=== PATIENT | female | born 2000 | race Caucasian/White ===

== ENCOUNTER 2019-08-27 12:33 | Observation (INO) | payer MEDICAID ==
[2019-08-27] VITALS (8 sets, daily range): BP systolic 77–113; BP diastolic 37–75; Ht 160 cm; Wt 100.9 kg
[~2019-08-27] VITALS: Ht 160 cm; Wt 100.9 kg
[2019-08-27] MEDS ORDERED: CATAPRES0.1 MG PO (12:38)
[2019-08-27] MEDS ORDERED: [UNRECOGNIZED DRUG - REMARK] (12:39)
--- NOTE | 2019-08-27 12:48 | NUR ---
SPOKE WITH CRYSTAL AT [place] [facility], RECOMMEND IV FLUIDS AND MONITORING, TREAT SYMPTOMATICALLY AND SUPPORTIVELY, CAN TREAT SYMPTOMATIC BRADYCARDIA WITH ATROPINE AND CALL BACK IF NEEDED.
[2019-08-27 13:05] LABS: BASOPHILS 0.1 % (0-2); EOSINOPHILS 1.2 % (0-7); HEMATOCRIT 41.4 % (36.0-48.0); HEMOGLOBIN 13.4 g/dL (12-16); IMMATURE GRANULOCYTES 0.1 % (0-5); LYMPHOCYTES 28.4 % (15-50); MCH 28.6 pg (26.0-34.0); MCHC 32.4 g/dL (31.0-37.0); MCV 88.5 fL (80.0-100.0); MEAN PLATELET VOLUME 9.4 fL (7.4-10.4); MONOCYTES 6.7 % (2-11); NEUTROPHILS 63.5 % (40-80); PLATELET COUNT 311 10x3/uL (130-400); RBC 4.68 10x6/uL (4.00-5.40); RDW 12.6 % (11.5-14.5); WBC 8.6 10x3/uL (4.8-10.8)
--- NOTE | 2019-08-27 13:10 | NUR ---
According to the suicide assessment the patient scores high for suicide and she will require a 1:1 observation.
[2019-08-27 13:18] LABS: CALC OSMOLALITY 277 mosm/kg (275-300); CALCIUM 8.9 mg/dL (8.5-10.1); CARBON DIOXIDE 26.1 mmol/L (21.0-32.0); CHLORIDE - SERUM 104 mmol/L (98-107); CREATININE - SERUM 0.6 mg/dL (0.6-1.3); GLUCOSE 129 mg/dL (74-106); POTASSIUM - SERUM 4.3 mmol/L (3.5-5.1); SODIUM 139 mmol/L (136-145); UREA NITROGEN 8 mg/dL (7-18); eGFR NON AFRICAN AMERICAN > 90 mL/min (90-120)
[2019-08-27 13:25] LABS: ALBUMIN 3.6 g/dL (3.4-5.0); ALKALINE PHOSPHATASE 69 U/L (30-120); ALT (SGPT) 24 U/L (10-68); BILIRUBIN - TOTAL 0.56 mg/dL (0.2-1.3); MAGNESIUM - SERUM 1.8 mg/dL (1.8-2.4); PROTEIN - SERUM 7.5 g/dL (6.4-8.2)
[2019-08-27 14:34] LABS: HCG URINE NEGATIVE (NEGATIVE)
[2019-08-27 14:43] LABS: UDS - AMPHET NEGATIVE QUAL (NEGATIVE); UDS - BARB NEGATIVE QUAL (NEGATIVE); UDS - BENZO POSITIVE QUAL (NEGATIVE); UDS - COCAINE NEGATIVE QUAL (NEGATIVE); UDS - OPIATE NEGATIVE QUAL (NEGATIVE); UDS - PCP NEGATIVE QUAL (NEGATIVE); UDS - THC NEGATIVE QUAL (NEGATIVE)
[2019-08-27 14:46] LABS: BILIRUBIN NEGATIVE (NEGATIVE); GLUCOSE NEGATIVE (NEGATIVE); KETONE NEGATIVE (NEGATIVE); NITRITE NEGATIVE (NEGATIVE); UROBILINOGEN NORMAL (NORMAL)
[2019-08-27 14:47] LABS: RED CELLS - URINE OCC /hpf (0-5); WHITE CELLS - URINE 0-5 /hpf (NEGATIVE)
[2019-08-27 14:48] LABS: BACTERIA MANY /hpf (NEGATIVE)
--- NOTE | 2019-08-27 15:15 | NUR ---
pateint arrived to unit. no acute distress. will continue to monitor
--- NOTE | 2019-08-27 15:20 | NUR ---
DENIES SUICIDE THOUGHTS AT THIS TIME. STATED SHE DID NOT WANT TO KILL HERSELF BUT WANTED TO SLEEP
--- NOTE | 2019-08-27 15:20 | NUR ---
PATIENT STATED SHE TOOK 4-6 PILLS OF CLONIDINE.
--- NOTE | 2019-08-27 15:21 | NUR ---
DROOM CLEARED. SITTER AT BEDSIDE
[2019-08-28] VITALS (11 sets, daily range): BP systolic 86–113; BP diastolic 33–57
[2019-08-28 05:16] LABS: BASOPHILS 0.1 % (0-2); EOSINOPHILS 1.5 % (0-7); HEMATOCRIT 38.2 % (36.0-48.0); HEMOGLOBIN 12.4 g/dL (12-16); IMMATURE GRANULOCYTES 0.2 % (0-5); LYMPHOCYTES 29.7 % (15-50); MCHC 32.5 g/dL (31.0-37.0); MCV 89.5 fL (80.0-100.0); MEAN PLATELET VOLUME 9.7 fL (7.4-10.4); MONOCYTES 7.2 % (2-11); NEUTROPHILS 61.3 % (40-80); PLATELET COUNT 287 10x3/uL (130-400); RBC 4.27 10x6/uL (4.00-5.40); RDW 12.7 % (11.5-14.5)
[2019-08-28 06:01] LABS: ALBUMIN 3.1 g/dL (3.4-5.0); ALKALINE PHOSPHATASE 55 U/L (30-120); ALT (SGPT) 22 U/L (10-68); BILIRUBIN - TOTAL 0.63 mg/dL (0.2-1.3); CALC OSMOLALITY 276 mosm/kg (275-300); CALCIUM 8.4 mg/dL (8.5-10.1); CARBON DIOXIDE 24.8 mmol/L (21.0-32.0); CHLORIDE - SERUM 104 mmol/L (98-107); CREATININE - SERUM 0.6 mg/dL (0.6-1.3); GLUCOSE 90 mg/dL (74-106); MAGNESIUM - SERUM 1.8 mg/dL (1.8-2.4); POTASSIUM - SERUM 3.9 mmol/L (3.5-5.1); PROTEIN - SERUM 6.5 g/dL (6.4-8.2); SODIUM 139 mmol/L (136-145); UREA NITROGEN 10 mg/dL (7-18); eGFR NON AFRICAN AMERICAN > 90 mL/min (90-120)
--- NOTE | 2019-08-28 06:15 | NUR ---
1900 - REPORT RECEIVED, PT RESTING IN BED, AAOX4. ASSESSMENT COMPLETED, SEE FLOWSHEET. PIV IN RT AC, SEE IV FLOWSHEET. 2100 - PT RESTING QUIETLY IN BED. 2300 - REASSESSMENT COMPLETED, PT ASSISTED TO BEDSIDE COMMODE. 0100 - PT C/O STOMACH PAINS/CRAMPS. 0300 - REASSESSMENT COMPLETED, NO ACUTE DISTRESS AT THIS TIME. 0500 - PT RESTING IN BED, NO ACUTE DISTRESS NOTED.
--- NOTE | 2019-08-28 15:04 | CN ---
PATIENT NAME:GAVIN LOW MEDICAL RECORD: [id number] : 89 LOCATION:[id number] ADMIT DATE: 08/27/19 ACCOUNT: [id number] CONSULTING PHYSICIAN: TANI WILLARD MD REFERRING PHYSICIAN: PATRICIA OSBORNE MD DATE OF CONSULTATION: 08/27/2019 IDENTIFYING DATA: The patient is 18 years old and she is admitted to the hospital on a voluntary basis after having taken a handful of clonidine. She initially said she was trying to kill herself. She now says she was just upset. Either way, she is endorsing numerous neurovegetative depressive symptoms and feels helpless, hopeless, isolated, and withdrawn. She discusses a number of problems that are overwhelming. She denies psychotic symptoms and she denies substance abuse. PAST PSYCHIATRIC HISTORY: Significant for an overdose when she was 13 and she was hospitalized at that time. She has a history of depression, anxiety, and posttraumatic stress disorder. She is currently followed on an outpatient basis by a psychiatrist and states that she has not been going to her therapy appointments as she is supposed to. ASSESSMENT: 1. Major depression. 2. Status post overdose. PLAN: The patient should be maintained on suicide precautions and should be transitioned out of the hospital soon if she is medically stable to an inpatient psychiatric facility. TRANSINT:[id number] Voice Confirmation ID: [id number] DOCUMENT ID: [id number] TANI WILLARD MD at 1504 CC: [id number] DICTATION DATE: 08/27/19 183 BROACHING MACHINE REPAIRER: 08/28/19 0018 ADM IN [facility] [address] [id number]
--- NOTE | 2019-08-28 20:33 | MORECARE ---
CASE MANAGEMENT DISCHARGE SUMMARY PATIENT: GAVIN LOW UNIT: [id number] ADM DATE: 08/27/19 AGE: 18 : 99 SEX: F ROOM/BED: D.2311 AUTHOR: ADDY FOURNIER PHYSICIAN: REFERRING PHYSICIAN: PATRICIA OSBORNE MD DATE OF SERVICE: 08/28/19 Discharge Plan Patient Name: GAVIN LOW [facility] [facility] 2000 Planned Disposition: Psych facility Anticipated Discharge Date: Discharge Date: 08/28/2019 Expected LOS: Initial Reviewer: [email or web address] Initial Review Date: 08/27/2019 Generated: 08/28/19 9:32 pm DCPIA - Discharge Planning Initial Assessment Updated by [email or web address]: Shikha Jensen on 08/28/19 8:28 pm * Is the patient Alert and Oriented? Yes * How many steps to enter\exit or inside your home? External Providers External Provider: [facility] Next Contact Date: Service Request Date: Service Type: Resolution: Reviewer: Comments: Patient Name: GAVIN LWO Page [phone] at 203 All edits/amendments must be made on the electronic document DICTATION DATE: 08/28/192031 CERTIFIED APPLIANCE SERVICE TECHNICIAN: LIGIA 08/28/192031 RPT#: [id number] DC DATE:08/28/19 STATUS: DIS IN [facility] [address] [place] [address] END OF REPORT
--- NOTE | 2019-08-28 20:40 | MORECARE ---
CASE MANAGEMENT DISCHARGE SUMMARY PATIENT: GAVIN LOW UNIT: [id number] ADM DATE: 08/27/19 AGE: 18 : 99 SEX: F ROOM/BED: D.2311 AUTHOR: ADDY FOURNIER PHYSICIAN: REFERRING PHYSICIAN: PATRICIA OSBORNE MD DATE OF SERVICE: 08/28/19 Discharge Plan Patient Name: GAVIN LOW Facility: [facility]:[place] : 2000 Planned Disposition: Psych facility Anticipated Discharge Date: Discharge Date: 08/28/2019 Expected LOS: Initial Reviewer: [email or web address] Initial Review Date: 08/27/2019 Generated: 08/28/19 9:40 pm Comments DCP- Discharge Planning Updated by [email or web address]: Shikha Jensen on 08/28/19 7:[address] CM received orders for inpatient psych placement. CM called transfer center and faxed records. CM received a call back from [facility] in and they have accepted patient. Nursing calling to set up transportation and transfer. CM will continue to follow and assist as needed with discharge planning / needs. DCPIA - Discharge Planning Initial Assessment Updated by [email or web address]: Shikha Jensen on 08/28/19 8:28 pm * Is the patient Alert and Oriented? Yes * How many steps to enter\exit or inside your home? Last DP export: 08/28/19 7:33 p Patient Name: GAVIN LOW Page [id number] at 2040 All edits/amendments must be made on the electronic document DICTATION DATE: 08/28/192039 [employer] INSPECTOR: LIGIA 08/28/192039 RPT#: [id number] DC DATE:08/28/19 STATUS: DIS IN [facility] [address] [place] [address] END OF REPORT
== END 2019-08-28 15:45 | disposition short-term general hospital (02) ==
LOC: D.ER 12:33 → D.ICU 14:15 → OBSVTIME 15:00 → D.ICU 08-28 15:45
PROVIDERS: Family Medicine; ADMIT Family Medicine; ATTEND Family Medicine
DX: T46.5X2A Poisoning by other antihypertensive drugs, intentional self-harm, initial encounter (principal); N39.0 Urinary tract infection, site not specified; F43.10 Post-traumatic stress disorder, unspecified; F32.9 Major depressive disorder, single episode, unspecified